=== PATIENT | female | born 1995 | race African-American/Black ===

== ENCOUNTER 2017-07-23 09:30 | Emergency (ER) | payer SELFPAY ==
[~2017-07-23] VITALS: Ht 152.4 cm; Wt 100.0 kg
[2017-07-23 10:15] VITALS: BP 125/55
[2017-07-23 11:16] LABS: GLUCOSE URINE NEGATIVE (NEGATIVE); KETONES URINE NEGATIVE (NEGATIVE); LEUKOCYTE ESTERASE URINE 3+ (NEGATIVE); NITRITE URINE POSITIVE (NEGATIVE); OCCULT BLOOD URINE 3+ (NEGATIVE); PH URINE 5.5 (4.5-8.0); PROTEIN URINE 2+ (NEGATIVE); SPECIFIC GRAVITY URINE 1.019 (1.005-1.030)
[2017-07-23 11:32] LABS: COLOR URINE AMBER (YELLOW)
[2017-07-23 11:33] LABS: CLARITY URINE CLOUDY (CLEAR)
[2017-07-23 11:40] LABS: HCG SCREEN NEGATIVE
== END 2017-07-23 13:25 | disposition home or self-care (01) ==
LOC: ER 12:44
DX: N39.0 Urinary tract infection, site not specified (principal); Z88.2 Allergy status to sulfonamides
CPT/HCPCS: 81001; 84703; 99284